=== PATIENT | female | born 1950 | race Caucasian/White ===

== ENCOUNTER 2022-07-08 13:39 | Emergency (ER) | payer MEDICARE, SELFPAY ==
[2022-07-08 13:58] VITALS: BP 129/62; PULSE 54; RESP 14; TEMP 36.3; O2SAT 98
--- NOTE | 2022-07-08 14:29 | ED.EAR ---
HPI - Ear Problem General Chief complaint: Ear Stated complaint: Ear Irritation/Dizziness Time Seen by Provider: 07/08/22 14:29 Source: patient Mode of arrival: ambulatory Limitations: no limitations History of Present Illness HPI Narrative: patient is a 71-year-old female that presents with room spinning at rest, feeling of fainting when standing, unsteady gait, nausea since yesterday morning. Patient states she was uncomfortable with walking by herself or driving herself due to symptoms. Patient states symptoms worsened this morning. States she called her primary care provider in the told her to go to the emergency department or urgent care to be seen and evaluated. Has not taken anything for symptoms. Denies any changes in vision, once sided weakness, changes in speech. unable to obtain medical history, for current medications per patient. Related Data Home Medications Medication Instructions Recorded Confirmed Unable to Obtain Home Medications 07/08/22 07/08/22 Allergies Allergy/AdvReac Type Severity Reaction Status Date / Time Sulfa (Sulfonamide Allergy Mild Other Verified 07/08/22 13:42 Antibiotics) Review of Systems Review of Systems: All systems reviewed & are unremarkable except as noted in HPI and below Constitutional: Constitutional: Denies body ache(s), Denies chills, Denies excessive sweating, Denies fever(s), Denies headache(s) and Denies malaise Eyes: Eyes: Denies blurry vision, Denies change in vision, Denies eye discharge and Denies irritation ENT: Denies dysphagia, Reports vertigo, Reports dizziness, Denies otalgia, Denies headache(s), Denies nasal congestion, Denies nasal discharge and Denies sore throat Cardiovascular: Cardiovascular: Denies chest pain, Denies edema, Denies palpitations and Denies dyspnea on exertion Respiratory: Respiratory: Denies cough and Denies dyspnea on exertion Gastrointestinal: Gastrointestinal: Denies abdominal pain, Denies diarrhea, Reports nausea and Denies vomiting Musculoskeletal: Musculoskeletal: Denies back pain, Denies arthralgias and Denies muscle weakness Integumentary/Breasts: Skin/Breast: Denies pruritus and Denies rash Neurologic: Denies headache(s) Psychiatric: Psychiatric: Reports no additional psychiatric complaints Endocrine: Endocrine: Denies excessive sweating and Denies palpitations PMFSH Comments At time of signature, agree with nursing past medical, surgical, social and family history. There is no relevant family history pertinent to the presenting complaint? Exam Const: General: cooperative, healthy appearing, no acute distress and well nourished Nutritional Appearance: well nourished Orientation/consciousness: patient oriented x3 Limitations: no limitations HENMT: Head: normal to inspection, normocephalic and atraumatic Ears: hearing grossly normal bilaterally, external ears normal, TM's normal bilaterally and no periauricular adenopathy Face/Nose/Sinus: Normal external nose present, Normal nares present, Normal nasal mucous membranes and turbinates present, No nasal discharge present, normal facial exam and sinuses nontender Face and sinus: normal facial exam and sinuses nontender Mouth: Yes Normal oral and palatal mucosa present and Yes lip normal Eyes: General: appearance normal, both eyes and all related structures Alignment and Position: alignment normal and position normal Eyelids: eyelids normal Pupils: Equal, round and reactive pupils present EOM: EOMs intact bilaterally Neck: Neck: normal visual inspection, full ROM and supple Chest: Chest palpation & inspection: normal inspection of the chest Resp: Effort & Inspection: normal respiratory effort and able to speak in complete sentences Auscultation: clear to auscultation bilaterally, no crackles, no rales, no rhonchi and no wheezes Cardio: Rate: bradycardic Rhythm: regular rhythm Heart sounds: S1 normal heart sound present and S2 normal heart sound present
--- NOTE | 2022-07-08 14:39 | ECG_ITS ---
Measurements Intervals [place] Rate: 54 P: 34 AR: 200 QRS: -8 QRSD: 99 T: 68 QT: 443 QTc: 422 Interpretive Statements SINUS BRADYCARDIA BORDERLINE AV CONDUCTION DELAY DELAYED PRECORDIAL R/S TRANSITION BORDERLINE ST-T WAVE ABNORMALITY- ANT/HIGH LAT LEADS BASELINE ARTIFACT- I, II, III, AVR, AVL, AVF, V1 BORDERLINE ECG NO PREVIOUS ECG AVAILABLE FOR COMPARISON Electronically Signed On 07-08-2022 21:34:12 CDT by Beck Araujo D.O.
== END 2022-07-08 14:50 | disposition home or self-care (01) ==
PROVIDERS: Emergency Provider Nurse Practitioner Family
DX: R42 Dizziness and giddiness (principal); R26.81 Unsteadiness on feet
CPT/HCPCS: 93005; 99213; G0463

== ENCOUNTER 2022-07-08 15:10 | Observation (INO) | payer MEDICARE, SELFPAY ==
[2022-07-08] VITALS (21 sets, daily range): BP systolic 114–141; BP diastolic 59–85; PULSE 47–72; RESP 12–25; TEMP 36.6; O2SAT 95–100
--- NOTE | ~2022-07-08 | XR_ITS ---
EXAMINATION: XR chest 2V Exam Date/Time: 07/08/2022 17:40 CDT HISTORY: syncope Comparison: 05/31/2012. RESULT: Lines, tubes, and devices: Cholecystectomy clips. Lungs and pleura: Senescent changes, otherwise clear. Cardiomediastinal silhouette: Stable. Other: No acute osseous or upper abdominal finding. IMPRESSION: No acute cardiopulmonary process. Reviewed, dictated and finalized at location K.
--- NOTE | ~2022-07-08 | CT_ITS ---
EXAMINATION: CT brain wo con DATE: 07/08/2022 17:54 INDICATION: vertigo . TECHNIQUE: Computed tomography (CT) of the head was performed without intravenous contrast. The mA wa s adjusted according to patient size. Iterative reconstruction technique was employed. The dose-lengt h product was 605.33 mGy-cm. COMPARISON: 01/12/2017. FINDINGS: No acute intracranial hemorrhage or extra-axial fluid collection. No hydrocephalus, mass, or herniation. No acute ischemic infarct. Unremarkable dural venous sinus attenuation. No acute osseous abnormality. Small volume left mastoid fluid, the remaining aerated spaces are clear. Mild atrophy and chronic white matter change. Atherosclerotic intracranial calcification. Bilateral b deonna ganglia calcification. Old right basal ganglia lacunar infarct involving the right caudate head and internal capsule, with slightly increased size since the prior study. IMPRESSION: No acute intracranial process. Mild interval subacute/chronic expansion of the small right basal gang tarsha lacunar infarct. Reviewed, dictated and finalized at location K. IMPRESSION: No acute intracranial process. Mild interval subacute/chronic expansion of the small right basal ganglia lacunar infarct.
--- NOTE | 2022-07-08 15:13 | ECG_ITS ---
Measurements Intervals [place] Rate: 49 P: 41 CA: 204 QRS: -1 QRSD: 110 T: 77 QT: 426 QTc: 387 Interpretive Statements SINUS BRADYCARDIA BORDERLINE AV CONDUCTION DELAY DELAYED PRECORDIAL R/S TRANSITION LOW QRS VOLTAGE IN PRECORDIAL LEADS BORDERLINE ST-T WAVE ABNORMALITY- ANTEROLAT/HIGH LAT LEADS BASELINE ARTIFACT- I, II, AVR BORDERLINE ECG COMPARED TO ECG 07/08/2022 14:49:28 NO SIGNIFICANT CHANGES Electronically Signed On 07-08-2022 21:34:50 CDT by Beck Araujo D.O.
[2022-07-08 15:36] LABS: Basophils Absolute Auto 0.1 K/mm3 (0.0-0.1); Basophils Percent Auto 0.5 % (0.2-1.2); Eosinophils Absolute Auto 0.2 K/mm3 (0-0.3); Eosinophils Percent Auto 1.4 % (0-4.4); Hematocrit 39.1 % (37.0-47.0); Hemoglobin 13.1 g/dL (12.0-15.0); Immature Granulocyte Absolute 0.04 K/mm3 (0.00-0.031); Immature Granulocyte Percent A 0.3 % (0-0.5); Lymphocytes Absolute Auto 2.55 K/mm3 (0.9-3.2); Lymphocytes Percent Auto 19.6 % (18.3-44.2); Mean Corpuscular HGB Conc 33.5 g/dl (32-36); Mean Corpuscular Volume 92.7 fl (80-100); Mean Platelet Volume 9.1 fl (7.4-10.4); Monocytes Absolute Auto 0.5 K/mm3 (0.1-0.6); Monocytes Percent Auto 3.8 % (2.6-8.5); Neutrophils Absolute Auto 9.7 K/mm3 (1.3-6.7); Neutrophils Percent Auto 74.4 % (45.5-73.1); Platelet Count Result 227 k/mm3 (150-375); Red Blood Count 4.22 M/mm3 (4.2-5.4); Red Cell Distribution Width 12.6 % (11.5-14.5)
[2022-07-08 15:51] LABS: Alanine Aminotransferase 23 U/L (6-35); Albumin Level 4.2 g/dL (3.5-5.1); Alkaline Phosphatase 97 U/L (38-126); Anion Gap 4 mmol/L (8-16); Aspartate Amino Transferase 35 U/L (14-36); Bilirubin,Total 0.6 mg/dL (0.2-1.3); Blood Urea Nitrogen 16 mg/dL (7-17); Calcium 8.9 mg/dL (8.4-10.2); Carbon Dioxide 36 mmol/L (22-30); Chloride 98 mmol/L (98-107); Estimated CRCL calculation 35 ml/min; Estimated Glomerular Filt Rate 40; Glucose 131 mg/dL (65-110); Potassium 3.6 mmol/L (3.4-5.0); Sodium 138 mmol/L (137-145)
--- NOTE | 2022-07-08 17:21 | ED.SYNCOPE ---
HPI - Syncope General Chief Complaint: Syncope Stated Complaint: dizziness Time Seen by Provider: 07/08/22 16:33 History of Present Illness HPI narrative: Patient is a 71-year-old female with a history of depression, anxiety, hypertension presenting with lightheadedness. Patient states that for the states that for the last several days she has been feeling generally unwell. States that she feels rundown. States that since last night she has been having episodes of lightheadedness. States that she feels like she is about to pass out. States that it is worse when getting up and walking. States that she had to hold onto her desai earlier today. She was seen in urgent care who advised that she come to the ER for evaluation. Urgent care was concerned for vertigo but the patient adamantly denies this to me. She denies any room spinning sensation. States that she has a history of vertigo and she has not any of the symptoms. She denies any numbness or weakness. No speech difficulties. She denies chest pain, palpitations, shortness of breath, leg swelling. Denies abdominal pain, nausea or vomiting, diarrhea, dysuria. Related Data Home Medications Medication Instructions Recorded Confirmed Uloric 40 mg PO DAILY 07/09/22 07/09/22 alprazolam 0.25 mg tablet 0.25 mg PO DAILY PRN Anxiety 07/09/22 07/09/22 cholecalciferol (vitamin D3) 125 5,000 unit PO WEEKLY 07/09/22 07/09/22 mcg (5,000 unit) capsule citalopram 20 mg tablet 20 mg PO HS 07/09/22 07/09/22 estradiol 0.1 mg/24 hr weekly 0.1 mg transdermal WEEKLY 07/09/22 07/09/22 transdermal patch famotidine 20 mg tablet 20 mg PO BID 07/09/22 07/09/22 fexofenadine 60 mg tablet 60 mg PO DAILY 07/09/22 07/09/22 gabapentin 300 mg capsule 300 mg PO HS 07/09/22 07/09/22 levothyroxine 75 mcg tablet 75 mcg PO DAILY 07/09/22 07/09/22 triamterene 37.5 1 cap PO DAILY 07/09/22 07/09/22 mg-hydrochlorothiazide 25 mg capsule Allergies Allergy/AdvReac Type Severity Reaction Status Date / Time Sulfa (Sulfonamide Allergy Mild Other Verified 07/09/22 00:33 Antibiotics) Review of Systems Review of Systems: All systems reviewed & are unremarkable except as noted in HPI and below PMFSH Past Medical History Medical History (Updated 07/13/22 @ 11:12 by Daisy Hutchinson MD) Allergic rhinitis Anxiety Chronic kidney disease, stage 3b With baseline creatinine between 1.1-1.3. Her chronic kidney disease was due to uncontrolled hypertension in the past Essential hypertension Gout Hypothyroidism Mitral valve prolapse Obstructive sleep apnea CPAP of 12 on polysomnogram 2007 Vitamin D deficiency Surgical History Surgical History (Updated 07/09/22 @ 01:50 by Dipti Sheffield DO) History of total hysterectomy with bilateral salpingo-oophorectomy (BSO) Hx of cholecystectomy Family History Family History Mother Breast cancer Father Colon cancer Social History Social History (Updated 07/09/22 @ 05:20 by Dipti Sheffield DO) Social History: The patient lives with her of 50 years. They had 1 son. 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 She is a lifelong nonsmoker. She does not drink alcohol. She denies illicit substance use. Code status: Full code Surrogate decision maker: Smoking status: Never smoker Alcohol intake: never Substance use: never Lack of Transportation: No Lack of Food: Never True Current Housing: I Have Housing Concerned About Future Housing: No Difficulty Paying Gas/Electric Bills: No Difficulty Paying for Meds: No Currently Unemployed: No Education: High School Diploma/GED Difficulty w/ Childcare or Family Care: No Spiritual care concerns: No Exam Narrative: GENERAL: Well-appearing, well-nourished, and in no acute distress. HEAD: Normocephalic, atraumatic. EYES: PERRLA a
[2022-07-08] MEDS: SODIUM CHLORIDE 0.9% IV 1,000 ML 999 ML IV CONT ×2 (17:29→18:48)
[2022-07-08 18:04] LABS: INR 1.1; Partial Thromboplastin Time 28.5 SECONDS (22.3-36.8); Prothrombin Time 13.5 Seconds (11.1-14.7)
[2022-07-08 18:07] LABS: Troponin I < 0.012 ng/mL (0.000-0.034)
[2022-07-08 18:11] LABS: Appearance Urine Clear (Clear); Bacteria Urine None Seen /hpf; Bilirubin Urine Negative (Negative); Blood Urine Negative (Negative); Color Urine Yellow (Yellow); Glucose Urine UA Negative (Negative); Ketones Urine Negative (Negative); Leukocyte Esterase Ur Trace LEU/UL (Negative); Nitrate Urine Negative (Negative); Non Pathogenic Casts 0-2; Protein Urine Negative (Negative); RBC Urine 0-2 /hpf (0-2); Specific Grav Ur 1.009 (1.001-1.035); Squamous Epithelial Cell Urine Few /hpf (Few); Urobilinogen Urine 0.2 mg/dL (<2.0); WBC Urine 0-5 /hpf; pH Urine 7.5 (5.0-9.0)
[2022-07-08 18:16] LABS: Add Urine Microscopic? YES
[2022-07-08 18:40] LABS: Influenza A QL RT-PCR Negative (Negative); Influenza B QL RT-PCR Negative (Negative); RSV RNA, RT-PCR Negative (Negative); SARS-CoV-2 RNA PCR Negative
[2022-07-08 19:25] LABS: Troponin I < 0.012 ng/mL (0.000-0.034)
[2022-07-08] MEDS: LACTATED RINGERS 1,000 ML 75 ML IV CONT (23:27)
[2022-07-09] VITALS (11 sets, daily range): BP systolic 124–144; BP diastolic 51–66; PULSE 53–65; RESP 16–18; TEMP 35.9–37.2; O2SAT 93–99; BMI 35.9
--- NOTE | 2022-07-09 00:15 | ADMGEN ---
This patient, Margaux Trevino, was admitted to Medical Room 257-01. Patient/family oriented to hospital policies and general routines including ID bracelet, bed and alarms, visiting hours, pain management, procedures, bathroom and other care routines, personal items, smoking policy, room service/diet, and visiting hours. Information on how to activate the Rapid Response Team has been discussed. Patient/Family are encouraged to report perceived risks to care and to ask questions if they do not understand what they are told or what they should do.
--- NOTE | 2022-07-09 01:45 | PM.IMHP ---
H&P: HPI History of Present Illness Date/Time: 07/09/22 01:45 Chief Complaint: Lightheaded Narrative: 71-year-old female with a past medical history of benign positional vertigo, hypothyroidism, essential hypertension, mitral valve prolapse, obstructive sleep apnea, and anxiety who presented to the ER from urgent care for evaluation of feeling lightheaded. The patient reports that she did not feel well when she went to bed on the . She was having a severe headache that she related similar to her prior migraines. The headache was on the left side. It she had associated visual changes with bright flashes of light. She did not wear CPAP due to her headache symptoms. She did not have any associated nausea or vomiting. She did report that she did have some fullness in her left ear. She notice the next morning when she went to [employer] when she turned her head to the left she felt off balance. She subsequently felt unsteady on her feet when she got up to walk. She held on to various pieces of furniture until she got to living room. She laid down on the couch as she was feeling extremely lightheaded and had become diaphoretic after she laid down. She denied true vertiginous symptoms. But she has had symptoms similar to this when she gets fluid behind her left ear. She denies any fevers or chills or recent ill contacts. She denies any new nasal congestion. She still reports that she still has a mild frontal headache. She usually takes Tylenol for her headaches and she cannot have a lever ibuprofen due to her chronic kidney disease stage 3. She reports that her headache is significantly better than it was the other night. She reports relief in the pressure in her ear after I performed an osteopathic release of her ear. At home she was having to hold onto the desai so that she did not fall. Nursing staff got her up to do orthostatic vital signs around 04:00 when she had to use the restroom. Orthostatics were negative at that time. The patient still felt slightly unsteady on her feet but her symptoms had improved compared to prior. She reports that in the past when she has had true vertigo with dizziness usually gets meclizine but her symptoms are not as bad as usual. She was noted to be bradycardic in the ER with heart rate in the 50s. She does not check her blood pressure or heart rate at home. She reported that last year her metoprolol was increased from once a day to twice a day and she was started on thiazide diuretics. She has not following up with her primary care physician since then since her 1 primary retired and her new primary had a baby and went to working part-time only. She does have of follow-up with her head mixer in [facility]. She does not know if she is bradycardic at baseline. She denies any dyspnea on exertion or lower extremity swelling. She has not been having any chest pain. She denies any numbness or weakness of her extremities. She has not had any difficulties with speech. She denies any palpitations or history of irregular heart rhythm. When they tried to get the patient up to ambulate in the ER the patient admitted several feet before she suddenly became lightheaded and felt as if she may pass out. Her blood pressures were not re-evaluated at that time. She does report just generally not feeling well. The patient's creatinine was elevated 1.3 but this was similar to her values from 2017. The patient reports that her chronic kidney disease was due to her history of uncontrolled hypertension in the past. Review of Systems Review of Systems: 12 systems were reviewed with pertinent positives and negatives per HPI. Except as documented in the HPI, all other systems were reviewed and are negative. [facility] Past Medical History Medical History (Updated 07/09/22 @ 05:24 by Dipti Sheffield DO) Allergic rhinitis Anxiety Chronic kidney disease, stage 3b With baseline creatinine between 1.1-1.3. Her chronic
[2022-07-09] MEDS: ACETAMINOPHEN 325 MG TABLET 650 MG PO (03:01)
[2022-07-09 05:39] LABS: Anion Gap 2 mmol/L (8-16); Blood Urea Nitrogen 12 mg/dL (7-17); Carbon Dioxide 30 mmol/L (22-30); Chloride 106 mmol/L (98-107); Estimated CRCL calculation 42 ml/min; Estimated Glomerular Filt Rate 49; Glucose 102 mg/dL (65-110); Hematocrit 33.6 % (37.0-47.0); Hemoglobin 11.2 g/dL (12.0-15.0); Mean Corpuscular HGB Conc 33.3 g/dl (32-36); Mean Corpuscular Hemoglobin 30.5 pg (26-34); Mean Corpuscular Volume 91.6 fl (80-100); Mean Platelet Volume 9.4 fl (7.4-10.4); Platelet Count Result 180 k/mm3 (150-375); Potassium 3.3 mmol/L (3.4-5.0); Red Blood Count 3.67 M/mm3 (4.2-5.4); Red Cell Distribution Width 12.4 % (11.5-14.5); Sodium 138 mmol/L (137-145); White Blood Count 10.9 K/mm3 (4.5-10.0)
[2022-07-09] MEDS: LEVOTHYROXINE SODIUM 75 MCG TABLET PO (05:55)
[2022-07-09] MEDS: POTASSIUM CHLORIDE 20 MEQ TABLET 40 MEQ PO (08:19)
[2022-07-09] MEDS: FAMOTIDINE 20 MG TABLET PO ×2 (08:20→17:01)
[2022-07-09] MEDS: LORATADINE 5 MG TABLET PO (08:21)
[2022-07-09] MEDS: TRIAMTERENE 37.5 MG/HCTZ 25 MG (MAXZIDE) TABLET 1 TAB PO (08:21)
[2022-07-09] MEDS: FEBUXOSTAT 40 MG TABLET PO (08:21)
[2022-07-09] MEDS: LACTATED RINGERS 1,000 ML 75 ML IV CONT (13:12)
--- NOTE | 2022-07-09 17:25 | PM.DS ---
DS: Admitting Diagnosis Discharge Date 07/09/22 Admitting Diagnosis Dizziness DS: Discharge Diagnosis Discharge Diagnosis (1) Episodic lightheadedness: Code(s): R42 - Dizziness and giddiness Status: Acute (2) Bradycardia: Code(s): R00.1 - Bradycardia, unspecified Status: Acute (3) Essential hypertension: Code(s): I10 - Essential (primary) hypertension Status: Acute (4) Acute dysfunction of left eustachian tube: Code(s): H69.82 - Other specified disorders of Eustachian tube, left ear Status: Acute (5) Headache above the eye region: Code(s): R51.9 - Headache, unspecified Status: Acute DS: Summary Hospital Course Reason for hospitalization: 71yo female with history of benign positional vertigo, hypothyroidism, essential hypertension, mitral valve prolapse, obstructive sleep apnea, and anxiety who presented to the ER from urgent care for evaluation of feeling lightheaded.??Please see H&P for details. Hospital Course: EKG on admission showing sinus bradycardia at [address]-T wave changes. Echo ordered and is pending. CXR clear. CT brain showing no acute intracranial process but possible small right basal ganglia lacunar infarct that was seen in 2017 (but MRI brain in 2017 did NOT show old stoke). WBC was 13K but decreased on repeat. She was not given antibiotics. Cr 1.3 but this improved with IV fluids. She has known CKD. Troponin wee negative. TSH normal. UA was clear. COVID, RSV and influenza was negative. She was noted to have mild bradycardia so her metoprolol was held. Unclear if she was having symptomatic bradycardia or unrelated. Heart rate improved to mostly 50-60 range. She was not orthostatic. She worked with therapy and was independent. She overall did well and was able to be discharged home on 07/09/22 Status at Discharge Cognitive/behavioral status at discharge: stable Time Spent with Patient Time attestation: Total time spent providing and/or coordinating discharge services: 32 minutes Time spent: Greater than 30 minutes Exam Narrative: AF 97.8 139/60 57 16 99% ra Gen - NARD Chest - CTA bilaterally, nml RR CV - RRR S1/S2 Abd - Soft, NT/ND, Positive BS Ext - No pedal edema Neuro - Alert and oriented. Nonfocal exam. Psych - Nml mood and affect Skin - Warm and dry DS: Data Data Completed and Pending Labs on day of discharge: Labs from last 24 hours 07/09/22 07/09/22 07/09/22 05:07 05:07 05:07 WBC 10.9 H RBC 3.67 L Hgb 11.2 L Hct 33.6 L MCV 91.6 MCH 30.5 MCHC 33.3 RDW 12.4 Plt Count 180 MPV 9.4 PT INR APTT Sodium 138 Potassium 3.3 L Chloride 106 Carbon Dioxide 30 Anion Gap 2 L BUN 12 Creatinine 1.10 H Estim Creat Clear Calc 42 Estimated GFR 49 L Glucose 102 Calcium 8.0 L Magnesium Troponin I TSH (Reflex) 2.140 Urine Color Urine Appearance Urine pH Ur Specific [place] Urine Protein Urine Glucose (UA) Urine Ketones Ur Blood (Man) Urine Nitrate Urine Bilirubin Urine Urobilinogen Leukocyte Esterase Rfl Urine RBC Urine WBC Ur Squamous Epith Cells Urine Bacteria Urine Casts Influenza A (RT-PCR) Influenza B (RT-PCR) RSV (RT-PCR) SARS-CoV-2 RNA (RT-PCR) 07/08/22 07/08/22 07/08/22 18:42 17:56 17:56 WBC RBC Hgb Hct MCV MCH MCHC RDW Plt Count MPV PT INR APTT Sodium Potassium Chloride Carbon Dioxide Anion Gap BUN Creatinine Estim Creat Clear Calc Estimated GFR Glucose Calcium Magnesium Troponin I < 0.012 TSH (Reflex) Urine Color Yellow Urine Appearance Clear Urine pH 7.5 Ur Specific [place] 1.009 Urine Protein Negative Urine Glucose (UA) Negative Urine Ketones Negative Ur Blood (Man) Negative Urine Nitrate Negat
== END 2022-07-09 18:10 | disposition home or self-care (01) ==
LOC: ANHED 17:23 → ANH2MED 23:54
PROVIDERS: Emergency Medicine; Admitting Provider Internal Medicine; Emergency Provider Emergency Medicine; Visit Provider Internal Medicine
DX: R42 Dizziness and giddiness (principal); R00.1 Bradycardia, unspecified; I12.9 Hypertensive chronic kidney disease with stage 1 through stage 4 chronic kidney disease, or unspecified chronic kidney disease; N18.32 Chronic kidney disease, stage 3b; H69.82 Other specified disorders of Eustachian tube, left ear; R51.9 Headache, unspecified; F32.A Depression, unspecified; F41.9 Anxiety disorder, unspecified; I34.1 Nonrheumatic mitral (valve) prolapse; Z20.822 Contact with and (suspected) exposure to COVID-19; M10.9 Gout, unspecified; E03.9 Hypothyroidism, unspecified; G47.33 Obstructive sleep apnea (adult) (pediatric); E55.9 Vitamin D deficiency, unspecified; Z99.89 Dependence on other enabling machines and devices; Z79.890 Hormone replacement therapy; Z79.899 Other long term (current) drug therapy
CPT/HCPCS: 36415; 70450; 71046; 80048; 80053; 81001; 83735; 84443; 84484; 85025; 85027; 85610; 85730; 87637; 93005; 96360; 96361; 97161; 97165; 99213; 99285; A9270; G0378; G0463; J7030; J7120

== ENCOUNTER 2022-07-25 13:22 | Outpatient (RCR) | payer MEDICARE, SELFPAY ==
[2022-07-25 13:55] VITALS: BMI 34.8
[2022-07-25 14:45] VITALS: BMI 34.8
== END 2022-10-09 08:37 | disposition home or self-care (01) ==
LOC: ANHDMC 13:22
DX: I12.9 Hypertensive chronic kidney disease with stage 1 through stage 4 chronic kidney disease, or unspecified chronic kidney disease (principal); N18.30 Chronic kidney disease, stage 3 unspecified; E78.2 Mixed hyperlipidemia; Z71.3 Dietary counseling and surveillance
CPT/HCPCS: 97802